=== PATIENT | female | born 1945 | race Caucasian/White ===

== ENCOUNTER 2021-07-02 22:08 | Emergency (ER) | payer MEDICARE, OTHER, SELFPAY ==
[2021-07-02 22:17] VITALS: BP 111/86; BP 135/69; PULSE 62; PULSE 65; RESP 18; TEMP 36.9; O2SAT 100; O2SAT 98; BMI 29.0
--- NOTE | 2021-07-02 22:22 | ED_ITS ---
HPI - Altered Mental Status General Chief Complaint: Altered Mental Status Stated Complaint: ?ams Time Seen by Provider: 07/02/21 22:14 Source: patient Mode of arrival: EMS Limitations: altered mental status History of Present Illness HPI narrative: Patient had left nephrostomy tube replaced today found confused prior to arrival by the family. On arrival patient alert oriented x3 but confused about the past. No fever no cough no vomiting no family member around Related Data Allergies Allergy/AdvReac Type Severity Reaction Status Date / Time No Known Allergies Allergy Verified 07/02/21 23:01 Review of Systems Review of Systems: Yes all other systems are reviewed and are negative [facility], [facility] Social History Social History Alcohol intake: never Patient Tobacco Use Status: Never used Tobacco Use of substances other than those prescribed or required for medical reasons: No Advance Directives: No Physical Exam Vital Signs: Vital Signs: Last Vital Signs Temp 98.4 F 07/03/21 01:54 Pulse 77 07/03/21 01:54 Resp 18 07/03/21 01:54 BP 132/76 07/03/21 01:54 Pulse Ox 98 07/03/21 01:54 Body Mass Index 29.0 Appearance: Alert. Oriented X3. No acute distress. Eyes: PERRLA, No Nystagmus ENT: Pharynx normal. Oral Mucosa moist Neck: Normal inspection. Neck supple. CVS: Normal heart rate and rhythm. Pulses normal. Respiratory: No respiratory distress. Equal air entry bilateral, no wheezing/rales/rhonchi Abdomen: Soft and nontender. Bowel sounds are present, no mass palpable, no CVA tenderness nephrostomy tube in place on left side Skin: Skin warm and dry. Normal skin color. Normal skin turgor. Extremities: No lower extremity edema. No calf tenderness Neuro: Oriented X 3. No motor deficit. No sensory deficit.No cerebellar signs , cranial nerves II-XII intact MDM - Altered Mental Status MDM Narrative Medical decision making narrative: Patient with CKD with creatinine of 1.3 in 2019 came with post anesthesia for left nephrostomy tube change , confusion post medications. Workup showed potassium slightly elevated with and creatinine of 1.6 patient was given p.o. fluids and Kayexalate. patient daughter is at bedside according to them patient does have chronic renal failure is getting worse has a executive marketing assistant she will follow-up with them ambulatory in the ER with discharge the patient home advised to follow with executive marketing assistant Medical Records Attestation: I reviewed the patient's medical records. Lab Data Attestation: I reviewed the patient's lab results. Result diagrams: 07/02/21 23:50 07/02/21 23:50 Labs: Lab Results 07/02/21 07/02/21 Range/Units 23:50 23:50 WBC 5.1 (4.8-10.8) X10*3/uL RBC 2.77 L (4.20-5.50) X10*6/uL Hgb 9.6 L (12.0-16.0) g/dl Hct 29.0 L (37-47) % MCV 104.7 H (80-98) fL MCH 34.7 H (27.0-33.0) pg MCHC 33.1 (31.0-35.0) g/dl RDW 13.8 (11.0-16.0) % Plt Count 124 L (160-400) X10*3/uL MPV 9.8 (9.4-12.3) fL Immature Gran % (Auto) 0.8 H (0.0-0.4) % Neut % (Auto) 65.4 (45-73) % Lymph % (Auto) 22.0 (20-40) % Arthur % (Auto) 9.2 (2-11) % Eos % (Auto) 1.8 (0-4) % Baso % (Auto) 0.8 (0-2) % Lymph # (Auto) 1.1 L (1.2-4.9) X10*3/uL Arthur # (Auto) 0.5 (0.1-1.2) X10*3/uL Eos # (Auto) 0.1 (0.0-0.4) X10*3/uL Baso # (Auto) 0.0 (0.0-0.2) X10*3/uL Abs Immat Gran (auto) 0.04 H (0.00-0.03) X10*3/uL Absolute Neuts (auto) 3.3 (2.0-8.3) X10*3/uL Absolute Nucleated RBC 0.000 (0.0-0.012) X10*3/uL Nucleated RBC % (auto) 0.0 (0.0-0.2) /100WBC Sodium 137 (135-145) mmol/L Potassium 5.4 H (3.3-5.1) mmol/L Chloride 110 H (96-108) mmol/L Carbon Dioxide 18 L (22-29) mmol/L Anion Gap 14 (12-20) BUN 33 H (9-16) mg/dL Creatinine 1.69 H (0.5-1.4) mg/dL Estim Creat Clear Calc 23.0 Estimated GFR 30 Random Glucose 97 (60-115) mg/dL Calcium 9.1 (8.4-10.2) mg/dL Total Bilirubin 0.5 (0.0-1.0) mg/dL AST 15 (5-31) U/L ALT < 6 (0-31) U/L Alkaline Phosphatase 116 (39-117) U/L Total Protein 6.8 (6.5-8.0) g/dL Albumin 3.9 (3.5-5.0) g/dL Discharge Plan Discharge Clinical Impression: Delirium due to general medical condition CKD (chronic kidney disease) Qualifiers: Chronic kidney disease stage: stage 3 (moderate) Chronic kidney disease stage 3 subtype: stage 3b (GFR 30-44) Qualified Code(s): N18.32 - Chronic kidney disease, stage 3b Patient Disposition: Home, Self-Care Instructions: Chronic Kidney Disease (ED), Acute Delirium (ED) Additional Instructions: Drink plenty of fluids Patient confusion likely postop medication side effect Follow up with executive marketing assistant for chronic kidney failure Avoid food containing high potassium like bananas/orange juice Interventions: ED Discharge Assessment Last Done: 07/03/21 01:57 Discharge Date/Time: 07/03/21 02:08
[2021-07-02 22:41] VITALS: BP 134/86; PULSE 65; RESP 15; TEMP 37.1; O2SAT 97
[2021-07-02 23:54] LABS: MANUAL DIFF FLAG NO
[2021-07-02 23:56] LABS: Basophils Percent Auto 0.8 % (0-2); Eosinophils Absolute Auto 0.1 X10*3/uL (0.0-0.4); Eosinophils Percent Auto 1.8 % (0-4); Hemoglobin 9.6 g/dl (12.0-16.0); Imm Gran Abs Auto 0.04 X10*3/uL (0.00-0.03); Imm Gran Pct Auto 0.8 % (0.0-0.4); Lymphocytes Absolute Auto 1.1 X10*3/uL (1.2-4.9); Mean Corpuscular HGB Conc 33.1 g/dl (31.0-35.0); Mean Corpuscular Hemoglobin 34.7 pg (27.0-33.0); Mean Corpuscular Volume 104.7 fL (80-98); Mean Platelet Volume 9.8 fL (9.4-12.3); Monocytes Absolute Auto 0.5 X10*3/uL (0.1-1.2); Monocytes Percent Auto 9.2 % (2-11); Neutrophils Absolute Auto 3.3 X10*3/uL (2.0-8.3); Neutrophils Percent Auto 65.4 % (45-73); Platelet Count 124 X10*3/uL (160-400); Red Blood Count 2.77 X10*6/uL (4.20-5.50); Red Cell Distribution Width 13.8 % (11.0-16.0); White Blood Count 5.1 X10*3/uL (4.8-10.8)
[2021-07-03 00:18] LABS: Alanine Aminotransferase < 6 U/L (0-31); Albumin Level 3.9 g/dL (3.5-5.0); Alkaline Phosphatase 116 U/L (39-117); Anion Gap 14 (12-20); Aspartate Amino Transferase 15 U/L (5-31); Bilirubin Total 0.5 mg/dL (0.0-1.0); Blood Urea Nitrogen 33 mg/dL (9-16); Calcium 9.1 mg/dL (8.4-10.2); Carbon Dioxide 18 mmol/L (22-29); Chloride 110 mmol/L (96-108); Estimated Glomerular Filt Rate 30; Glucose Random 97 mg/dL (60-115); Potassium 5.4 mmol/L (3.3-5.1); Sodium 137 mmol/L (135-145); Total Protein 6.8 g/dL (6.5-8.0)
[2021-07-03] MEDS: Sodium Polystyrene Sulfon/Sorb 15 GM/60 ML ORAL.SUSP 30 GM PO (01:45)
[2021-07-03 01:54] VITALS: BP 132/76; PULSE 77; RESP 18; TEMP 36.9; O2SAT 98
--- NOTE | 2021-07-03 01:56 | PC.NURSE ---
Pt alert and oriented x4, calm and cooperative. Pt denies pain. Nephrostomy tube intact. Pt drank pitcher of water and tolerated well. No IV, vitals sable. Pt taken home by daughter.
== END 2021-07-03 02:08 | disposition home or self-care (01) ==
PROVIDERS: Emergency Provider Internal Medicine; PCP Internal Medicine
DX: N18.32 Chronic kidney disease, stage 3b (principal); Z79.899 Other long term (current) drug therapy
CPT/HCPCS: 36415; 80053; 85025; 99283; 99284